=== PATIENT | female | born 1965 | race Caucasian/White ===

== ENCOUNTER 2018-01-06 11:36 | Emergency (ER) | payer SELFPAY ==
[~2018-01-06] VITALS: Ht 175.3 cm; Wt 64.6 kg
[~2018-01-06 11:36] MED LIST: ALBU18HF INH; ALBU25PO2; ALBU6.7H INH; BENZ-17 PO; CYAN10005 PO; FLUT1AER INH; FOLI-17 PO; FOLI1TAB7; MULT1TAB60 PO; PRED50TA PO; THIA100T6 PO; TIOT18CA
[2018-01-06 11:43] VITALS: BP 135/97
== END 2018-01-06 13:39 | disposition home or self-care (01) ==
LOC: ED 13:33
DX: L03.311 Cellulitis of abdominal wall (principal); L03.113 Cellulitis of right upper limb; L03.115 Cellulitis of right lower limb; J44.9 Chronic obstructive pulmonary disease, unspecified; Z90.710 Acquired absence of both cervix and uterus
CPT/HCPCS: 99284

== ENCOUNTER 2020-06-07 15:46 | Emergency (ER) | payer MEDICAID, OTHER ==
[~2020-06-07] VITALS: Ht 175.3 cm; Wt 68.5 kg
[~2020-06-07 15:46] MED LIST changes: -ALBU6.7H INH; +ALBU6.7H8 INH; +CENTRUM CHEWAB1 EACH; +CYAN-27 PO; -CYAN10005 PO; -FOLI1TAB7; +MULT-449 PO; -MULT1TAB60 PO; -THIA100T6 PO; +THIA100T67 PO
--- NOTE | 2020-06-07 16:21 | NUR ---
FIRST CONTACT WITH PT. PT C/O PAIN UNDER BREAST AND ARMPIT X 2-3 MONTHS AND L LYMPHO NODE SWELLING X 1 WEEK. PT DENIES ANY OTHER SX. PT'S AOX4. RESPS EVEN AND UNLABORED. BP/SPO2 MONITORS PLACED. CALL LIGHT WITHIN REACH.
[2020-06-07] MEDS ORDERED: SODIUM CHLORIDE FLUSH 10ML SYR IVF ONE (17:00)
[2020-06-07 17:09] LABS: BASOPHILS % (AUTO) 1 % (0-1); EOSINOPHILS % (AUTO) 1 % (1-7); LYMPHOCYTES % (AUTO) 23 % (22-44); MEAN CORPUSCULAR HEMOGLOBIN 28.6 pg (27.0-34.8); MEAN CORPUSCULAR HGB CONC 32.2 g/dL (32.4-35.8); MONOCYTES % (AUTO) 9 % (2-9); NEUTROPHILS % (AUTO) 67 % (42-75); PLATELET COUNT 257 x10^3/uL (130-400); RED BLOOD COUNT 4.06 x10^6/uL (3.82-5.3)
[2020-06-07 17:18] LABS: ALANINE AMINOTRANSFERASE 21 U/L (12-78); ALBUMIN 3.3 g/dL (3.4-5.0); ANION GAP 8 mmol/L (5-15); CALCIUM 8.3 mg/dL (8.5-10.1); CHLORIDE 109 mmol/L (98-107); CREATININE 0.82 mg/dL (0.55-1.02)
[2020-06-07 17:20] LABS: ALKALINE PHOSPHATASE 117 U/L (45-117); BILIRUBIN,TOTAL 0.3 mg/dL (0.2-1.0); MD NO; TOTAL PROTEIN 7.4 g/dL (6.4-8.2)
--- NOTE | 2020-06-07 18:06 | NUR ---
THIS RN ATTEMPTED PIV X 2. NO SUCCESS. VIRGILIO RIOS AT BEDSIDE TO START PIV AT THIS TIME.
--- NOTE | 2020-06-07 18:26 | NUR ---
ct paged at this time.
--- NOTE | 2020-06-07 18:40 | NUR ---
PT TO CT AT THIS TIME.
--- NOTE | 2020-06-07 18:57 | NUR ---
report given to bryn curry.
[2020-06-07] MEDS ORDERED: OMNIPAQUE 350 MG/ML, 150 ML BOTTLE ONE (19:08)
--- NOTE | 2020-06-07 19:15 | NUR ---
received report, assumed care of a 54 year old female to ED for Left sided facial pain and swelling located in the submandibular region. She states she also has pain and tenderness under her left breast that radiates to her axillary region. She recently returned fom Ct scan. She is resting in bed aao x 4. She is requesting pain medications at this time due to facial pain. Awaiting response from care team. Will continue to monitor.
[2020-06-07 19:52] VITALS: BP 136/92
== END 2020-06-07 19:53 | disposition home or self-care (01) ==
LOC: ED 17:50
DX: L04.0 Acute lymphadenitis of face, head and neck (principal); R93.89 Abnormal findings on diagnostic imaging of other specified body structures; R60.0 Localized edema; R07.89 Other chest pain; J44.9 Chronic obstructive pulmonary disease, unspecified; F17.210 Nicotine dependence, cigarettes, uncomplicated
CPT/HCPCS: 36415; 70491; 71260; 80053; 85025; 93005; 99285; 99406; Q9967

== ENCOUNTER 2020-07-09 08:47 | Outpatient (CLI) | payer MEDICAID ==
[~2020-07-09] VITALS: Ht 175.3 cm; Wt 69.6 kg
[2020-07-09 09:19] VITALS: BP 132/85
== END 2020-07-09 09:45 | disposition home or self-care (01) ==
LOC: OUT 08:47 → EDSTATUS 10:30
PROVIDERS: ATTEND Surgery
DX: R59.1 Generalized enlarged lymph nodes (principal); Z53.8 Procedure and treatment not carried out for other reasons; Z20.828 Contact with and (suspected) exposure to other viral communicable diseases; F17.210 Nicotine dependence, cigarettes, uncomplicated; Z88.2 Allergy status to sulfonamides; Z90.710 Acquired absence of both cervix and uterus; Z98.890 Other specified postprocedural states
CPT/HCPCS: 87635

== ENCOUNTER 2020-07-13 08:35 | Day surgery (SDC) | payer MEDICAID ==
[~2020-07-13 08:35] MED LIST changes: +LIDOCAINE-MPF 1%, 5ML ONE
== END 2020-07-13 09:07 | disposition home or self-care (01) ==
LOC: OUT 08:35
PROVIDERS: ATTEND Surgery
DX: Z02.9 Encounter for administrative examinations, unspecified (principal)